=== PATIENT | female | born 1985 | race Caucasian/White ===

== ENCOUNTER 2021-06-05 02:01 | Emergency (ER) | payer OTHER, SELFPAY ==
[2021-06-05 02:02] VITALS: BP 135/105; PULSE 112; RESP 18; TEMP 36.1; O2SAT 95; BMI 27.3
--- NOTE | 2021-06-05 02:17 | EKG12_ITS ---
Test Reason : MHC Blood Pressure : / mmHG Vent. Rate : 081 BPM Atrial Rate : 081 BPM P-R Int : 128 ms QRS Dur : 084 ms QT Int : 384 ms P-R-T Axes : 067 -04 019 degrees QTc Int : 446 ms Normal sinus rhythm Possible Left atrial enlargement Nonspecific T wave abnormality Borderline ECG Confirmed by MARTINA PEREIRA, HANNA ([id number]), digital editor KAMILLA ODONNELL ([id number]) on 06/07/2021 9:22:34 AM Referred By: PERCY Confirmed By:HANNA MACK MD
--- NOTE | 2021-06-05 02:17 | CT_ITS ---
STUDY: CT BRAIN WITHOUT CONTRAST REASON FOR EXAM: Female, 36 years old. Change in Mental Status RADIATION DOSAGE (If Supplied By Facility): CTDIvol = ( 44.99 ) mGy, DLP = ( 745.49 ) mGycm TECHNIQUE: Transaxial CT imaging of the brain was performed without administration of intravenous contrast material. Individualized dose optimization techniques were used for this CT. COMPARISON: No relevant priors. FINDINGS: Normal soft tissue structures. Normal calvarium. Normal size ventricles and extra-axial spaces for the patient''s age. Normal white matter tracts of the cerebral hemispheres. Normal basal ganglia and thalami. Normal brainstem. Normal cerebellum. There is no intracranial hemorrhage. There are no findings of an acute ischemic infarction. Normal visualized paranasal sinuses. CT/Brain/Head without Contrast IMPRESSION: Normal unenhanced CT scan of the brain. Electronically Signed: Linda Max MD at 3:30 EDT Tel , Service support ,
--- NOTE | 2021-06-05 02:28 | EDS_ITS ---
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 She rang the doorbell to the emergency room multiple times stating that she needed to get away from her . When asked what that meant she stated that she was fearing for her children safety. She reports that over the past week she has not been eating very well. She states that she is having memories of things from her childhood and not sure where they are coming from. She believes her phone is bugged. She states that she believes she is being investigated by the [employer]. She wants to get a predator control trapper to fight this investigation. She denies any suicidal ideation. She states she spoke with a counselor several days ago when she is at work. She is not currently on any medications. Her states that over the past week the patient has become withdrawn and very paranoid. She has expressed fear for her children safety. She has noted auditory hallucinations. He states that she is answering only 1 or 2 words at a time. He has not seen any suicidal or homicidal behavior. He reports that the night she states knocked the children out of the house and took him over to her mom's because she was fearing for their safety. [facility] Medical History Depression Home Medications NK 06/05/21 [History Last Taken Unknown] Allergy/AdvReac Type Severity Reaction Status Date / Time codeine AdvReac Nausea/Vom/ Verified 06/05/21 02:06 Diarrhea Surgical History History of Social History (Updated 06/05/21 @ 02:[address] Tab Reno DO) Smoking Status: Never smoker substance use type: does not use ROS ROS ED Constitutional Constitutional ED: Denies chills or weight loss Eyes Eyes: Denies change in vision or diplopia ENT ENT ED: Denies ear pain, rhinorrhea or sore throat Cardiovascular Cardiovascular: Denies chest pain, orthopnea, palpitations or racing heartbeat Respiratory/Chest Respiratory/Chest: Denies cough, dyspnea or orthopnea Gastrointestinal Gastrointestinal: Denies abdominal pain, diarrhea, nausea or vomiting Genitourinary Genitourinary ED: Denies dysuria, hematuria or urinary frequency Musculoskeletal Musculoskeletal: Denies arthralgias or myalgias Integumentary Denies abscess or rash Neurologic Neurologic: Denies headache(s) or weakness Psychiatric Psychiatric: Reports anxiety and depression; Denies suicidal ideation or suicidal thoughts Endocrine Endocrinology: Denies polydipsia, polyphagia or polyuria Allergic/Immunologic Allergic/Immunologic ED: Denies mouth swelling, tongue swelling or urticaria EXAM Physical Exam Const Vital Signs: 06/05/21 02:02 Temperature 97.0 F L Temperature Source Temporal Pulse Rate 112 H Respiratory Rate 18 Blood Pressure 135/105 H Blood Pressure Mean 115 Pulse Ox 95 Oxygen Delivery Method Room Air Positive well nourished and well developed General Appearance ED: well developed HEENT Reports normocephalic, head/scalp atraumatic and moist mucous membranes Eyes PERRL and EOMs intact bilaterally Neck no lymphadenopathy, supple and no JVD Resp normal respiratory effort and clear to auscultation bilaterally Cardio regular rate, regular rhythm and no murmurs GI normal to inspection, nondistended, normoactive bowel sounds and non-tender Palpation: soft Back/Spine no CVA tenderness and normal ROM Extremity normal to inspection General Extremety ED: Negative for edema General Extremity: Negative for edema Neuro oriented x3 and CN's II-XII intact bilaterally Sensorium / Orientation: alert Motor Exam: strength 5/5 throughout Psych Psych Narrative: Patient admits to auditory hallucinations. She expresses paranoia that her children are not safe. She appears internally stimulated and withdrawn. Mood & Affect: Negative for depressed or tearful Skin no rashes or lesions noted and no wounds MDM MDM MDM Narrative Medical decision making narrative: Medical screening labs reveal potassium of 2.8. She received 40 mEq of potassium p.o. She will need additional potassium over the next several days. Toxicology is negative. Head CT performed and was negative. Covid test was negative. Patient is demonstrating acute paranoia. This is an abrupt change from her baseline. This is causing significant stress on her children and her . I believe the patient would benefit from inpatient psychiatric evaluation. I filled out a pink slip. I will speak with crisis and have them assess her and help us with placement. Lab Data Attestation: I reviewed the patient's lab results. Labs: Laboratory Results - last 24 hr 06/05/21 06/05/21 06/05/21 02:35 02:35 02:35 WBC 8.4 RBC 4.68 Hgb 14.2 Hct 41.4 MCV 88.5 MCH 30.3 MCHC 34.3 RDW Std Deviation 39.2 RDW Coeff of Vidya 12.2 Plt Count 300 MPV 9.1 Immature Gran % (Auto) 0.400 Neut % (Auto) 68.8 Lymph % (Auto) 22.7 [place] % (Auto) 6.9 Eos % (Auto) 0.7 Baso % (Auto) 0.5 Absolute Neuts (auto) 5.8 Absolute Lymphs (auto) 1.91 Nucleated RBC % 0 Sodium 137 Potassium 2.8 L Chloride 103 Carbon Dioxide 25.0 Anion Gap 9 BUN 8 Creatinine 0.69 Estim Creat Clear Calc 99.47 Est GFR (MDRD) Af Amer 123 Est GFR (MDRD) Non-Af 102 BUN/Creatinine Ratio 11.6 Glucose 144 H Calcium 9.0 Total Bilirubin 0.60 AST 12 L ALT 22 Alkaline Phosphatase 48 Total Protein 8.0 Albumin 3.9 Globulin 4.1 Albumin/Globulin Ratio 1.0 TSH 0.75 Serum , Qual Urine Opiates Screen Urine Methadone Screen Ur Barbiturates Screen Ur Phencyclidine Scrn Ur Amphetamines Screen U Methamphetamin-MDMA U Benzodiazepines Scrn Urine Cocaine Screen U Cannabinoids Screen Ur Drug Screen Comment Ethyl Alcohol < 3.0 06/05/21 06/05/21 02:35 02:35 WBC RBC Hgb Hct MCV MCH MCHC RDW Std Deviation RDW Coeff of Vidya Plt Count MPV Immature Gran % (Auto) Neut % (Auto) Lymph % (Auto) [place] % (Auto) Eos % (Auto) Baso % (Auto) Absolute Neuts (auto) Absolute Lymphs (auto) Nucleated RBC % Sodium Potassium Chloride Carbon Dioxide Anion Gap BUN Creatinine Estim Creat Clear Calc Est GFR (MDRD) Af Amer Est GFR (MDRD) Non-Af BUN/Creatinine Ratio Glucose Calcium Total Bilirubin AST ALT Alkaline Phosphatase Total Protein Albumin Globulin Albumin/Globulin Ratio TSH Serum , Qual NEGATIVE Urine Opiates Screen NEGATIVE Urine Methadone Screen NEGATIVE Ur Barbiturates Screen NEGATIVE Ur Phencyclidine Scrn NEGATIVE Ur Amphetamines Screen NEGATIVE U Methamphetamin-MDMA NEGATIVE U Benzodiazepines Scrn NEGATIVE Urine Cocaine Screen NEGATIVE U Cannabinoids Screen NEGATIVE Ur Drug Screen Comment Ethyl Alcohol Radiography Diagnostic Testing: Radiology Impression Brain CT 06/05/21 02:17 IMPRESSION: Normal unenhanced CT scan of the brain. Electronically Signed: Linda Max MD at 3:30 EDT Tel , Service support , EKG Initial EKG: Attestation: I personally reviewed and interpreted this EKG as follows: Comments: EKG demonstrates a normal sinus rhythm at a rate of 81 bpm. No concerning features of ACS or ectopy noted. Discharge Plan Triage Chief Complaint: Mental Health ED Provider: Tab Reno Dx/Rx/DC Orders Clinical Impression: Acute paranoia, Auditory hallucinations, Hypokalemia Prescriptions: No Action NK RF: 0 Primary Care Provider: NOT,DEFINED Referrals: NOT,DEFINED [Primary Care Provider] - Disposition Disposition: Psychiatric Hospital or Unit
[2021-06-05 02:50] LABS: Absolute Lymphocyte Count 1.91 X10^3/uL (0.83-4.51); Absolute Neutrophil Count 5.8 X10^3/uL (2.0-7.7); Basophil# 0.04 X10^3/uL; Basophil% 0.5 % (0-1); Eosinophil# 0.06 X10^3/uL; Eosinophils% 0.7 % (0-5); Hematocrit 41.4 % (37-47); Hemoglobin 14.2 g/dL (12.0-15.0); Lymphocyte # 1.91 X10^3/ul (0.83-4.51); Lymphocyte % 22.7 % (19-41); Mean Corp Hgb Conc 34.3 g/dL (32-36); Mean Corpuscular Hgb 30.3 pg (27.0-32.0); Mean Corpuscular Volume 88.5 fL (81-99); Mean Platelet Vol. 9.1 fl (6.2-12.0); Monocyte# 0.58 X10^3/uL; Monocyte% 6.9 % (0-10); NRBC Flagged by Analyzer 0 % (0-5); Neutrophil % 68.8 % (47-70); Platelet Count 300 K/mm3 (150-450); RBC Distribution Width CV 12.2 % (11.6-14.6); RBC Distribution Width SD 39.2 fl (35.1-43.9); Red Blood Count 4.68 M/mm3 (4.2-5.4); White Blood Count 8.4 K/mm3 (4.4-11.0)
[2021-06-05 02:59] LABS: Amphetamine Urine VISTA NEGATIVE (<1000 ng/mL); Barbiturate Urine VISTA NEGATIVE (< 200 ng/mL); Benzodiazepine Urine VISTA NEGATIVE (< 200 ng/mL); Cocaine Urine VISTA NEGATIVE (< 300 ng/mL); Ecstacy Urine VISTA NEGATIVE (< 500 ng/mL); Methadone Urine VISTA NEGATIVE (< 300 ng/mL); PCP Urine VISTA NEGATIVE (< 25 ng/mL); THC Urine VISTA NEGATIVE (< 50 ng/mL); Vista UDS pH Range 6
[2021-06-05 03:11] LABS: Internal QC Validated? YES +Cl - CLEAR BKGD; Pregnancy, Serum, hCG Quali. NEGATIVE Negative
[2021-06-05 03:15] LABS: AST(SGOT) 12 U/L (15-37); Alanine Aminotransfer ALT/SGPT 22 U/L (13-56); Albumin, Serum 3.9 g/dL (3.2-5.0); Alcohol, Blood (Medical)-Serum < 3.0 mg/dL; Alkaline Phosphatase 48 U/L (45-117); Anion Gap 9 (5-15); BUN 8 mg/dL (7-18); BUN/Creat Ratio 11.6 RATIO (10-20); Chloride 103 mmol/L (98-107); Creatinine, Serum 0.69 mg/dL (0.55-1.02); EST Glomerular Filtration Rate 102 mL/min (>60); Est Glom Filt Rate - Afr Amer 123 mL/min (>60); Estimated Creatinine Clearance 99.47 ml/min; Globulin 4.1 g/dL (2.2-4.2); Glucose 144 mg/dL (74-106); Potassium 2.8 mmol/L (3.5-5.1); Sodium Level 137 mmol/L (136-145); Thyroid Stim Hormone (TSH) 0.75 uIU/mL (0.358-3.74)
[2021-06-05 04:33] VITALS: RESP 16
--- NOTE | 2021-06-05 05:47 | ED.RN ---
PT came out of room with her following asking for water. PT wanted to find a water fountain. PT was offered a cup of water as there are no water fountains available. PT saw the EMS bay where she tried to leave. grabbed pts arm. This RN and additional RN led PT back into bed. PT was given a cup of water as requested. MD aware. PT offered tv on or lights off for comfort and distraction, both were refused.
--- NOTE | 2021-06-05 05:48 | ED.RN ---
[facility]ENDING [facility]
--- NOTE | 2021-06-05 06:14 | ED.RN ---
PT wanted her clothes back, PT was told that she could not have them back. Pt wanted to know how much longer, PT was educated. She also requested MD to give her lab/CT results. PT is escalating, MD aware and at bedside.
[2021-06-05 06:53] VITALS: BP 133/80; PULSE 92; RESP 18; O2SAT 98
--- NOTE | 2021-06-05 08:24 | ED.RN ---
[facility] CALLED TO GET UPDATED VITALS. STATES THEY THINK THEY WILL BE ACCEPTING HER AND WILL CALL US BACK
[2021-06-05 09:22] VITALS: RESP 16
[2021-06-05 10:24] VITALS: BP 113/67; PULSE 93; RESP 16; TEMP 37.1; O2SAT 97
== END 2021-06-05 11:19 ==
LOC: ED 04:44
PROVIDERS: Emergency Provider Emergency Medicine; PCP Family Medicine
DX: F22 Delusional disorders (principal); E87.6 Hypokalemia
CPT/HCPCS: 70450; 80053; 80307; 82077; 84443; 84703; 85025; 87426; 93005; 99282